=== PATIENT | female | born 1945 | race Caucasian/White ===

== ENCOUNTER 2023-10-21 11:25 | Outpatient (RCR) | payer MEDICARE, BC ==
[2023-10-21] VITALS (10 sets, daily range): BP systolic 106–130; BP diastolic 52–68; PULSE 64–80; TEMP 97.7–98.6
[~2023-10-21] VITALS: Ht 170.2 cm; Wt 65.0 kg
[~2023-10-21 11:25] MED LIST: ADCETRIS50 MG IV; DACARBAZINE IV; ELIQUIS 5MG PO; FERROUS SU325 MG/TAB PO; FIRST-MOUTHWASH1 KIT PO; KLOR-CON M1010 MEQ PO; LEVAQUIN 5500 MG/TA1 PO; PRILOSEC 20MG20 MG PO; QUESTRAN4 GM/9 GM PO; TOPROL XL100 MG PO; VINBLASTINE IV; [UNRECOGNIZED DRUG - CODE] IV; [UNRECOGNIZED DRUG - OTHER] SQ
== END 2023-10-21 17:27 | disposition home or self-care (01) ==
LOC: EUO 11:25
DX: C81.71 Other Hodgkin lymphoma, lymph nodes of head, face, and neck (principal)
CPT/HCPCS: J1644; J7050; P9040